=== PATIENT | female | born 1995 | race Caucasian/White ===

== ENCOUNTER 2019-01-22 16:24 | Emergency (ER) | payer SELFPAY ==
[~2019-01-22] VITALS: Ht 162.6 cm; Wt 116.9 kg
--- NOTE | 2019-01-22 16:28 | NUR ---
CALLED NO ANSWER
[2019-01-22 16:30] VITALS: BP 135/83
--- NOTE | 2019-01-22 17:36 | NUR ---
PATIENT PRESENTS TO ED TODAY FOR LOWER ABD PAIN X 3 WEEKS AGO WITH NAUSEA, DENIES VAGINAL BLEEDING. PATIENT REPORTS 4 RECENT POSITIVE TESTS, SIG OTHER AT BEDSIDE, CALL LIGHT WITHIN REACH, AWAITING MD ORDERS.
--- NOTE | 2019-01-22 17:56 | NUR ---
AT BEDSIDE WITH US.
== END 2019-01-22 18:24 | disposition home or self-care (01) ==
LOC: ED 18:19
DX: O26.891 Other specified pregnancy related conditions, first trimester (principal); R10.9 Unspecified abdominal pain; Z3A.01 Less than 8 weeks gestation of pregnancy
CPT/HCPCS: 99282

== ENCOUNTER 2019-11-10 22:01 | Emergency (ER) | payer MEDICAID ==
[~2019-11-10] VITALS: Ht 162.6 cm; Wt 120.7 kg
--- NOTE | 2019-11-10 22:27 | NUR ---
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 and sent to lab.
[2019-11-10 22:34] LABS: HCG UR SG 1.024 (1.003-1.030); MICROSCOPIC AUTO
[2019-11-10 22:35] LABS: CULTURE INDICATED? YES
[2019-11-10 23:19] LABS: BASOPHILS # (AUTO) 0.03 x10^3/uL (0-0.1); BASOPHILS % (AUTO) 0 % (0-1); EOSINOPHILS # (AUTO) 0.16 x10^3/uL (0-0.4); EOSINOPHILS % (AUTO) 2 % (1-7); LYMPHOCYTES # (AUTO) 2.45 x10^3/uL (1-3.4); LYMPHOCYTES % (AUTO) 23 % (22-44); MD NO; MEAN CORPUSCULAR HEMOGLOBIN 29.8 pg (27.0-34.8); MEAN CORPUSCULAR HGB CONC 33.3 g/dL (32.4-35.8); MEAN CORPUSCULAR VOLUME 89.7 fL (80-100); MEAN PLATELET VOLUME 10.4 fL (7.4-10.4); MONOCYTES # (AUTO) 0.67 x10^3/uL (0.2-0.8); MONOCYTES % (AUTO) 6 % (2-9); NEUTROPHILS # (AUTO) 7.55 x10^3/uL (1.8-6.8); NEUTROPHILS % (AUTO) 70 % (42-75); PLATELET COUNT 293 x10^3/uL (130-400); RED BLOOD COUNT 4.54 x10^6/uL (3.82-5.3); RED CELL DISTRIBUTION WIDTH 14.3 % (9.6-15.2)
[2019-11-10 23:27] LABS: ALANINE AMINOTRANSFERASE 25 U/L (12-78); ALBUMIN 3.7 g/dL (3.4-5.0); ANION GAP 8 mmol/L (5-15); CALCIUM 9.4 mg/dL (8.5-10.1); CHLORIDE 108 mmol/L (98-107); CREATININE 0.91 mg/dL (0.55-1.02)
[2019-11-10] MEDS ORDERED: ONDANSETRON 2MG/ML, 2ML IVPush ONE (23:30)
[2019-11-10] MEDS ORDERED: MORPHINE SULFATE 4 MG/ML, 1ML IVPush PRN (23:30)
[2019-11-10 23:32] LABS: ALKALINE PHOSPHATASE 57 U/L (45-117); BILIRUBIN,TOTAL 0.2 mg/dL (0.2-1.0); TOTAL PROTEIN 7.5 g/dL (6.4-8.2)
--- NOTE | 2019-11-10 23:37 | NUR ---
Pt eating [employer] sandwich in room with lab at bedside for blood draw. IV started for ct, pt tolerated well.
[2019-11-11] MEDS ORDERED: OMNIPAQUE 350 MG/ML, 150 ML BOTTLE ONE
[2019-11-11 00:16] VITALS: BP 117/36
== END 2019-11-11 00:39 | disposition home or self-care (01) ==
LOC: ED 23:13
DX: I88.0 Nonspecific mesenteric lymphadenitis (principal); R10.31 Right lower quadrant pain; R19.00 Intra-abdominal and pelvic swelling, mass and lump, unspecified site
CPT/HCPCS: 36415; 74177; 80053; 81001; 81025; 84703; 85025; 87086; 99285; Q9967

== ENCOUNTER 2019-12-02 14:17 | Outpatient (CLI) | payer MEDICAID ==
[2019-12-02] MEDS ORDERED: IBUP-1623 PO (14:54)
[2019-12-02] MEDS ORDERED: ALBU8.5H8 INH (14:54)
[2019-12-07] MEDS ORDERED: CHLORHEXIDINE 15 ML UDC ONE (10:24)
== END 2019-12-02 23:59 | disposition home or self-care (01) ==
LOC: STAR 14:17
PROVIDERS: ATTEND Surgery
DX: Z02.9 Encounter for administrative examinations, unspecified (principal)

== ENCOUNTER 2019-12-07 09:47 | Day surgery (SDC) | payer MEDICAID ==
[~2019-12-07] VITALS: Ht 162.6 cm; Wt 124.6 kg
[~2019-12-07 09:47] MED LIST: ALBU8.5H8 INH; BUPIVACAINE/PF-EPI 0.5% 1:200K ONE; IBUP-1623 PO
[2019-12-07] MEDS ORDERED: LACTATED RINGERS 1,000 ML IV SCH (10:16)
[2019-12-07 10:18] VITALS: BP 116/83
[2019-12-07 10:23] LABS: HCG UR SG 1.023 (1.003-1.030)
[2019-12-07] MEDS ORDERED: CHLORHEXIDINE 15 ML UDC MM ONE (11:00)
[2019-12-07] MEDS ORDERED: FENTANYL PF 250 MCG/5ML ONE (11:16)
[2019-12-07] MEDS ORDERED: HYDROmorphone 1 MG/ML, 1ML INJ IVPush PRN (11:30)
[2019-12-07] MEDS ORDERED: LABETALOL 5MG/ML, 20ML IV PRN (11:30)
[2019-12-07] MEDS ORDERED: ALBUTEROL SULFATE 2.5 MG/3 ML NPPB PRN (11:30)
[2019-12-07] MEDS ORDERED: MEPERIDINE/PF 25MG/0.5ML IVPush PRN (11:30)
[2019-12-07] MEDS ORDERED: HALOPERIDOL 5 MG/ML IV PRN (11:30)
[2019-12-07] MEDS ORDERED: hydrALAzine 20 MG/ML, 1ML IV PRN (11:30)
[2019-12-07] MEDS ORDERED: PROMETHAZINE 25 MG/ML, 1ML IVPush PRN (11:30)
[2019-12-07] MEDS ORDERED: FENTANYL PF 100 MCG/2ML IV PRN (11:30)
[2019-12-07] MEDS ORDERED: OXYcodone 5 MG/5 ML ORAL.SOL UDC PO PRN (11:30)
[2019-12-07] MEDS ORDERED: ONDANSETRON 2MG/ML, 2ML ONE (11:48)
[2019-12-07] MEDS ORDERED: SUCCINYLCHOLINE 20 MG/ML, 10ML ONE (11:48)
[2019-12-07] MEDS ORDERED: PROPOFOL 10 MG/ML, 20ML ONE (11:48)
[2019-12-07] MEDS ORDERED: ROCURONIUM 10MG/ML,5ML ONE (11:48)
[2019-12-07] MEDS ORDERED: NEOSTIGMINE 1 MG/ML, 10ML ONE (11:48)
[2019-12-07] MEDS ORDERED: DEXAMETHASONE 4 MG/ML, 1ML ONE (11:48)
[2019-12-07] MEDS ORDERED: GLYCOPYRROLATE 0.2MG/1ML, 5ML ONE (11:48)
[2019-12-07] MEDS ORDERED: CEFAZOLIN 1,000 MG ONE ×2 (11:48)
[2019-12-07] MEDS ORDERED: OXYcodone 5 MG/5 ML ORAL.SOL UDC ONE (12:19)
[2019-12-07] MEDS ORDERED: HYDROmorphone 1 MG/ML, 1ML INJ ONE (12:19)
== END 2019-12-07 13:40 | disposition home or self-care (01) ==
LOC: OUT 09:47
PROVIDERS: ATTEND Surgery
DX: R19.09 Other intra-abdominal and pelvic swelling, mass and lump (principal); D48.1 Neoplasm of uncertain behavior of connective and other soft tissue; J45.909 Unspecified asthma, uncomplicated; E66.01 Morbid (severe) obesity due to excess calories; Z68.41 Body mass index [BMI] 40.0-44.9, adult; Z98.890 Other specified postprocedural states
CPT/HCPCS: 22903; 81025; 88305; 88341; 88342; J0330; J0690; J1100; J1170; J2405; J2704; J3010; J7120; U0001; J2710

== ENCOUNTER 2020-01-01 08:11 | Emergency (ER) | payer MEDICAID ==
[~2020-01-01] VITALS: Ht 162.6 cm; Wt 127.5 kg
[~2020-01-01 08:11] MED LIST changes: -BUPIVACAINE/PF-EPI 0.5% 1:200K ONE
[2020-01-01 08:14] VITALS: BP 162/97
--- NOTE | 2020-01-01 08:59 | NUR ---
evaluated by md and prescriptions given with discharge. ambulated to discharge window, steady gait
== END 2020-01-01 09:10 | disposition home or self-care (01) ==
LOC: ED 08:30
DX: L03.311 Cellulitis of abdominal wall (principal)
CPT/HCPCS: 99284